=== PATIENT | male | born 1965 | race Caucasian/White ===

== ENCOUNTER 2024-11-28 13:47 | Emergency (ER) | payer MEDICAID, SELFPAY ==
[2024-11-28 13:56] VITALS: BP 130/75; PULSE 78; TEMP 36.7; O2SAT 96; BMI 25.8
--- NOTE | 2024-11-28 15:45 | ED_ITS ---
HPI HPI - General Adult General Chief complaint: Extremity Problem, Nontraumatic Stated complaint: left leg swelling Time Seen by Provider: 11/28/24 14:00 Source: patient Mode of arrival: walk-in Limitations: no limitations History of Present Illness HPI narrative: Patient is a 59-year-old male presenting to the emergency department [facility] for concerns of left lower extremity swelling. Patient states he noticed the swelling 2 days ago and has gotten progressively worse. He feels like he has tightness in the back of his calf. He states he has a history of DVT in the past and used to be on Eliquis. However, he stopped the Eliquis a few years ago because it was making him bleed . He can identify why he was diagnosed DVT. He denies history of ca ncer. No hemoptysis. No chest pain or shortness of breath. No recent surgical procedures or immobilizations. He is otherwise healthy with no chronic medical conditions. Related Data Previous Rx's ?Medication ?Instructions ?Recorded apixaban 5 mg (74 tabs) tablets in 5 mg PO BID #74 ea 11/28/24 a dose pack (Eliquis DVT-PE Treat 30D Start) Allergies Allergy/AdvReac Type Severity Reaction Status Date / Time No Known Drug Allergies Allergy Verified 11/28/24 13:56 Review of Systems ROS Status of ROS 10 or more systems reviewed and unremark able except as noted in history and below PFSH PFSH Social History Little interest or pleasure in doing things: not at all Feeling down, depressed, or hopeless: not at all Exam Narrative Exam Narrative: CONSTITUTIONAL: Well-appearing, answering questions and following commands appropriately SKIN: Was warm and dry. EYES: Sclerae white. EARS, NOSE, THROAT: Moist oral mucosa. RESPIRATORY: Clear to auscultation bilaterally, no wheezes, crackles, or stridor, no use of accessory muscles CARDIOVASCULAR: Normal rate and regular rhythm. There is no S3, S4, murmur, rub. GASTROINTESTINAL: Abdomen is nondistended. MUSCULOSKELETAL: There is pitting edema of the left lower extremity with mild calf tenderness. No swelling of the right lower extremity. No overlying erythema or induration. Lower extremities are warm and well-perfused. NEUROLOGIC: Patient is awake and alert. Good sensation and strength in the bilateral lower extremities. Ambulates with a steady gait. Constitutional Vital Signs, click to edit/add: Last Vital Signs Temp 98.1 F 11/28/24 13:56 Pulse 78 11/28/24 13:56 Resp 20 11/28/24 13:56 BP 130/75 11/28/24 13:56 Pulse Ox 96 11/28/24 13:56 O2 Del Method Room Air 11/28/24 13:56 Course Vital Signs Vital signs: Vital Signs Temperature 98.1 F 11/28/24 13:56 Pulse Rate 78 11/28/24 13:56 Respiratory Rate 20 11/28/24 13:56 Blood Pressure 130/75 11/28/24 13:56 Pulse Oximetry 96 11/28/24 13:56 Oxygen Delivery Method Room Air 11/28/24 13:56 Temperature 98.1 F 11/28/24 13:56 Pulse Rate 78 11/28/24 13:56 Respiratory Rate 20 11/28/24 13:56 Blood Pressure 130/75 11/28/24 13:56 Pulse Oximetry 96 11/28/24 13:56 Oxygen Delivery Method Room Air 11/28/24 13:56 Medical Decision Making MDM Narrative Medical decision making narrative: Patient is a 59-year-old male, history significant for DVT no longer on anticoagulation, presenting to the emergency department for 2-day history of left lower extremity swelling. Vital signs on arrival are within normal limits. He is afebrile and hemodynamically stable. Other than pitting edema in the left lower extremity he has a normal physical examination. He is otherwise asymptomatic with no systemic symptoms. Otherwise healthy with no chronic medical conditions. Differential diagnose includes DVT, peripheral edema. Duplex ultrasound was obtained. Duplex ultrasound of the left lower extremity demonstrated noncompressibility of the left popliteal vein concerning for DVT. I do believe the patient is stable for discharge. Given that it is a distal DVT and he has no other comorbidities, I do believe he is appropriate for outpatient therapy. They were instructed to follow up with his PCP for further care. Return precautions were given including any new or worsening symptoms, including worsening swelling in the lower extremities or shortness of breath. They were given a prescription for Eliquis 10 mg twice daily x 7 days, followed by Eliquis 5 mg twice daily until he can follow-up with his doctor. He was given 74 tablets of Eliquis. Patient understands and agrees to the plan. FINAL IMPRESSION: #Acute deep vein thrombosis of the left popliteal vein DISPOSITION: Discharged home CONDITION: Good Imaging Data Left lower extremity duplex venous ultrasound: Attestation: I personally reviewed and interpreted this imaging study as follows: Discharge Plan Discharge Chief Complaint: Extremity Problem, Nontraumatic Clinical Impression: Deep vein thrombosis of lower extremity Qualifiers: Affected thrombotic vein of extremity: popliteal Chronicity: acute Laterality: left Qualified Code(s): I82.432 - Acute embolism and thrombosis of left popliteal vein Patient Disposition: Home, Self-Care Time of Disposition Decision: 15:11 Condition: Good Mode of Transportation: Private Vehicle Prescriptions / Home Meds: New Eliquis DVT-PE Treat 30D Start 5 mg (74 tabs) tablets,dose pack 5 mg PO BID Qty: 74 0RF Rx Instructions: 2 tablets (10mg) twice daily for the first 7 days. Then, 1 tablet (5mg) twice daily thereafter. Print Language: Upper Sorbian Instructions: Deep Vein Thrombosis (ED) Referrals: Physician,Non-Staff, [Primary Care Provider] - 1 week Discharge Date/Time: 11/28/24 15:20
== END 2024-11-28 15:20 | disposition home or self-care (01) ==
PROVIDERS: Emergency Provider Student in an Organized Health Care Education/Training Program
DX: I82.432 Acute embolism and thrombosis of left popliteal vein (principal); Z86.718 Personal history of other venous thrombosis and embolism
CPT/HCPCS: 93971; 99284